=== PATIENT | female | born 1995 | race Two or more races ===

== ENCOUNTER 2019-01-16 13:21 | Day surgery (SDC) | payer OTHER ==
[2019-01-16] MEDS ORDERED: OXYCODONE/ACETAMINOPHEN (5/325) TAB PO ×2 (15:00)
[2019-01-16] MEDS ORDERED: DIPHENHYDRAMINE 50 MG INJ IV (15:00)
[2019-01-16] MEDS ORDERED: ONDANSETRON 4 MG INJ IV (15:00)
[2019-01-16] MEDS ORDERED: MIDAZOLAM 1 MG/ML 2 ML INJ IV (15:00)
[2019-01-16] MEDS ORDERED: hydrALAzine 20 MG INJ IV (15:00)
[2019-01-16] MEDS ORDERED: LABETALOL HCL 20MG INJ IV (15:00)
[2019-01-16] MEDS ORDERED: EPHEDrine SULFATE 50 MG/5 ML SYG IV (15:00)
[2019-01-16] MEDS ORDERED: TRIMETHOBENZAMIDE 100 MG/ML VIAL IM (15:00)
[2019-01-16] MEDS ORDERED: FENTAnyl 50 MCG/ML VIAL IV ×3 (15:00)
[2019-01-16] MEDS ORDERED: HYDROmorphONE 1 MG/5 ML IV SYRINGE IV ×3 (15:00)
[2019-01-16] MEDS ORDERED: ALBUTEROL 0.083% (NEB) 2.5 MG/3 ML AMP HHN (15:00)
[2019-01-16] MEDS ORDERED: MEPERIDINE 25 MG INJ IV (15:00)
[2019-01-16] MEDS ORDERED: IPRATROPIUM (NEB) 0.5 MG/2.5 ML AMP HHN (15:00)
[2019-01-16] MEDS ORDERED: FENTAnyl 50 MCG/ML VIAL (15:18)
[2019-01-16] MEDS ORDERED: LIDOCAINE 100 MG SYRINGE (15:18)
[2019-01-16] MEDS ORDERED: PROPOFOL 20 ML (15:18)
== END 2019-01-16 16:33 | disposition home or self-care (01) ==
LOC: GIL 13:21
DX: K21.0 Gastro-esophageal reflux disease with esophagitis (principal); K29.00 Acute gastritis without bleeding
CPT/HCPCS: 43239; 84703; 88305; 88312